=== PATIENT | female | born 1965 | race Caucasian/White ===

== ENCOUNTER 2022-07-27 00:51 | Emergency (ER) | payer MEDICAID ==
[~2022-07-27] VITALS: Ht 152.4 cm; Wt 82.0 kg
[2022-07-27 01:04] VITALS: BP 116/66
[2022-07-27] MEDS ORDERED: KETOROLAC 60MG/2ML VIAL IM STA (03:02)
[2022-07-27] MEDS ORDERED: CYCL5TAB PO (06:19)
[2022-07-27] MEDS ORDERED: NAPR-681 PO (06:19)
== END 2022-07-27 07:51 | disposition home or self-care (01) ==
LOC: ER 00:51
DX: S86.912A Strain of unspecified muscle(s) and tendon(s) at lower leg level, left leg, initial encounter (principal); Z98.890 Other specified postprocedural states; X50.1XXA Overexertion from prolonged static or awkward postures, initial encounter; Y93.89 Activity, other specified; Y92.018 Other place in single-family (private) house as the place of occurrence of the external cause
CPT/HCPCS: 73562; 93971; 96372; 99284; J1885